=== PATIENT | female | born 2000 | race Caucasian/White ===

== ENCOUNTER 2019-04-27 10:52 | Emergency (ER) | payer BC ==
[~2019-04-27] VITALS: Ht 170.2 cm; Wt 86.4 kg
[2019-04-27 10:57] VITALS: TEMP 96.8
[2019-04-27 11:49] LABS: COLLECTION METHOD CLEAN CATCH
[2019-04-27 12:07] LABS: BASO % 0.4 % (0.0-2.0); GRAN # 9.1 (1.4-6.5); GRAN % 83.2 % (42.2-75.2); HEMATOCRIT 45.1 % (35.0-45.0); HEMOGLOBIN 14.6 g/dl (12.0-15.0); LYMPH # 1.3 (1.2-3.4); LYMPH % 11.7 % (20.0-51.0); MEAN CELL VOLUME 90 fl (80.0-95.0); MEAN CORPUSCULAR HEMOGLOBIN 29 pg (26.0-32.0); MEAN CORPUSCULAR HGB CONC 32 g/dl (33.0-37.0); MEAN PLATELET VOLUME 10.1 fl (7.4-10.4); MONO # 0.4 (0.1-0.6); MONO % 3.8 % (1.7-9.3); PLATELET COUNT 269 K/mm3 (130-400); REDCELL DISTRIBUTION WIDTH-CV 12.5 % (11.5-14.5)
[2019-04-27 12:09] LABS: PH 8 (5-8); URINE APPEARANCE Clear; URINE BILIRUBIN Negative (NEGATIVE); URINE BLOOD Negative (NEGATIVE); URINE COLOR Yellow; URINE GLUCOSE Negative (NEGATIVE); URINE KETONE Negative (NEGATIVE); URINE LEUKOCYTE ESTERASE Negative (NEGATIVE); URINE NITRATE Negative (NEGATIVE); URINE PROTEIN(semi-quant) 2+ (NEGATIVE); URINE UROBILINOGEN Negative (NEGATIVE)
[2019-04-27 12:10] LABS: ALANINE AMINOTRANSFERASE 23 U/L (9-52); ALBUMIN 4.7 gm/dL (3.5-5.0); ALKALINE PHOSPHATASE 97 U/L (50-136); ANION GAP 11 mmol/L (7-16); AST,SGOT 28 U/L (15-37); BILIRUBIN,TOTAL 0.4 mg/dL (0.0-1.0); BLOOD UREA NITROGEN 13 mg/dL (7-17); CALCIUM 9.5 mg/dL (8.4-10.2); CARBON DIOXIDE 23 mmol/L (22-30); CHLORIDE 106 mmol/L (98-107); CREATININE, serum 0.55 (0.52-1.25); GLUCOSE 114 mg/dL (74-106); POTASSIUM 3.9 mmol/L (3.4-5.0); SODIUM 141 mmol/L (137-145)
[2019-04-27 12:11] LABS: C-REACTIVE PROTEIN < 0.5 mg/dL (0.0-0.9)
[2019-04-27 12:37] LABS: AMORPHOUS CRYSTAL Present /uL; MUCOUS Present /lpf; SQUAMOUS EPITHELIAL 0-2 /hpf; URINE BACTERIA Rare /hpf; URINE RBC 0-2 /hpf
[2019-04-27] MEDS ORDERED: ZOFRAN ODT4 MG PO (13:54)
[2019-04-27 14:10] VITALS: BP 114/70; PULSE 95
== END 2019-04-27 14:10 | disposition home or self-care (01) ==
LOC: COL.ER 10:52
PROVIDERS: Physician Assistant
DX: R19.7 Diarrhea, unspecified (principal); R11.10 Vomiting, unspecified; L93.0 Discoid lupus erythematosus; Z79.82 Long term (current) use of aspirin
CPT/HCPCS: J2405; J2550; J7030

== ENCOUNTER → 2020-02-09 | Outpatient (CLI) | payer BC ==
[~2020-02-09] MED LIST: ZOFRAN ODT4 MG PO
== END ==
LOC: COL.PUL 12-31 13:00
DX: J45.40 Moderate persistent asthma, uncomplicated (principal)
CPT/HCPCS: J7674

== ENCOUNTER → 2020-02-29 | Outpatient (CLI) | payer BC | LOC: COL.RAD 11:30 | DX: R00.2 Palpitations (principal) | CPT/HCPCS: Q9967 ==

== ENCOUNTER → 2020-07-14 | Outpatient (CLI) | payer BC | LOC: COL.LAB 11:42 | DX: Z91.018 Allergy to other foods (principal) ==

== ENCOUNTER → 2022-08-24 | Outpatient (CLI) | payer BC | LOC: COL.RAD 08:21 | DX: R10.13 Epigastric pain (principal); R10.31 Right lower quadrant pain | CPT/HCPCS: Q9967 ==